=== PATIENT | female | born 1990 | race Caucasian/White ===

== ENCOUNTER 2016-03-23 14:38 | Emergency (ER) | payer OTHER ==
[~2016-03-23] VITALS: Ht 160 cm; Wt 63.6 kg
[~2016-03-23 14:38] MED LIST: OXYC-57 PO
[2016-03-23 14:55] VITALS: TEMP 37; Ht 160 cm; Wt 63.6 kg
--- NOTE | 2016-03-23 16:04 | EMERGENCY ROOM VISIT NOTE ---
History Report prepared by Naheed: Tina Jaramillo Under the Supervision of: Dr. Jaime Camacho M.D. First contact with patient: 15:51 Chief Complaint: VAGINAL BLEEDING Stated Complaint: VAG BLEEDING AND PAIN - APPROX 5 WKS History of Present Illness The patient is a 25 year old female who presents to the Emergency Room with complaints of increased vaginal bleeding since earlier this morning. Currently, she is experiencing cramping pains to her lower abdomen, and she rates her discomfort as a 7/10. When the patient's vaginal bleeding started earlier this morning, she states that she was only minimally spotting, however, it has since become heavy and darker in color. Patient states that she tested positive for last week, but her first appointment with OB is not until the of this month. This is her 5th with history of 3 births and 1 miscarriage. Patient states that she did not experience vaginal bleeding with her full term pregnancies, but she did when she previously miscarried. Patient' s LNMP was the beginning of last month. Over the past few weeks, patient states that she has felt nauseous, but she denies vomiting. She also denies recent fevers, chills, headache, chest pain, diarrhea, urinary symptoms or other acute symptoms. Source of History: patient Onset: this morning Position: other (vaginal) Symptom Intensity: 7/10 Quality: other (bleeding) Timing: other (increased) Associated Symptoms: + abdominal pain (cramping), + nausea, No SOB, No chest pain, No chills, No diarrhea, No fevers, No urinary symptoms, No vomiting Review of Systems All systems have been listed, reviewed, and are negative other than those previously mentioned. Please see Additional Medical History Sheet. Past Medical & Surgical Medical Problems: (1) Acute urinary tract infection (2) Anxiety (3) Depression Family History Cancer Diabetes mellitus Heart disease Hypertension Social History Smoking Status: Current Every Day Smoker Alcohol Use: none Marital Status: in relationship Housing Status: lives with significant other Occupation Status: unemployed Current/Historical Medications No Active Prescriptions or Reported Meds Allergies Coded Allergies: Azithromycin (Verified Allergy, Unknown, ., 03/09/16) Physical Exam Vital Signs Date Time Temp Pulse Resp B/P Pulse Ox O2 Delivery O2 Flow Rate FiO2 03/23/16 17:40 70 20 104/73 99 03/23/16 16:07 94 18 106/64 99 Room Air 105/64 105/77 03/23/16 14:55 37.0 83 17 109/72 99 Room Air Physical Exam GENERAL: Patient awake, alert, oriented x 3. Patient follows commands. Patient does not appear toxic. Patient is adequately hydrated and well- nourished. SKIN: No erythema, pallor, cyanosis or rash HEENT: Normal head, pupils equal, reactive to light and accommodation. Ears normal. Oral cavity and posterior pharynx appear normal. Neck: Without adenopathy, no neck vein distention. LUNGS: Clear to auscultation. No wheezes, no rales, no rhonchi. HEART: No murmurs. No gallops. No rubs ABDOMEN: No masses, no rebound, no hepatomegaly or splenomegaly. PELVIC: Approximately 20-30 CCs of maroon blood in the vaginal vault. Os is closed. Bimanual exam reveals enlarged uterus. No adnexal tenderness. EXTREMITIES: No signs of trauma. No pedal or pretibial edema. No calf or thigh tenderness. No signs of trauma or infection. NEUROLOGIC: Cranial nerves II-XII within normal limits. No gross motor sensory function deficits. Medical Decision & Procedures ER Provider Diagnostic Interpretation: Ultrasound as read by the radiologist: COMPARISON STUDY: ultrasound 03/20/2015. FINDINGS: The uterus measures 7.8 x 3.9 x 5.8 cm. The endometrial stripe measures 8 mm in thickness. There is no evidence for an intrauterine gestational sac at this time. The ovaries are normal in size and demonstrate normal color flow. There is a 1.1 cm cyst within the left ovary. Trace pelvic free fluid, likely physiologic. There is a 4 mm nabothian cyst. No adnexal masses. IMPRESSION: No evidence for an intrauterine gestational sac. No adnexal masses. In the setting of a positive test this is consistent with a of unknown location. This could represent an early nonvisualized intrauterine , nonvisualized ectopic , or recent spontaneous . Follow-up beta-hCG and/or pelvic ultrasound is recommended. Laboratory Results 03/23/16 16:19 Test 03/23/16 16:19 Red Blood Count 5.09 M/uL (4.2-5.4) Mean Corpuscular Volume 90.6 fL (80-100) Mean Corpuscular Hemoglobin 31.2 pg (25-34) Mean Corpuscular Hemoglobin Concent 34.5 g/dl (32-36) RDW Standard Deviation 44.1 fL (36.4-46.3) RDW Coefficient of Variation 13.2 % (11.5-14.5) Mean Platelet Volume 10.4 fL (7.4-10.4) Laboratory results as stated above per my review. ED Course 1551: Past medical records reviewed. The patient was evaluated in room C4. A complete history and physical examination was performed. 1622: A pelvic exam was preformed at this time. Patient will go to US for further radiographic studies. Medical Decision Nurses notes reviewed. Medical history sheet reviewed. Differential diagnosis includes but is not limited to: threatened AB, inevitable AB and ectopic . Exam reveals some blood in the vagina but no tissue. The os is closed. Patient is hemodynamically stable. She is not orthostatic. She is Rh+. Ultrasound as listed above. I spoke with Dr. Bowles From [facility]. The patient will have a repeat quantitative beta-hCG in 48 hours with a follow-up appointment with [facility]. In the meantime the patient is to be off her feet as much as possible. She is return here sooner if bleeding becomes more severe, passes tissue or she becomes lightheaded. Consults Time Called: 1630 Consulting Physician: Jelena [facility] Returned Call: [phone] She'll have one quantitative beta-hCG now and repeat in 48 hours and a follow- up visit with them Impression Primary Impression: First trimester bleeding Scribe Attestation The scribe's documentation has been prepared under my direction and personally reviewed by me in its entirety. I confirm that the note above accurately reflects all work, treatment, procedures, and medical decision making performed by me. Departure Information Dispostion Home / Self-Care Prescriptions No Active Prescriptions or Reported Meds Referrals Nahum Zambrano M.D. (MEDICAL) (PCP) Tamy Bowles MD Patient Instructions A Signature Page, Bleeding Early Preg, My [facility] [employer] Additional Instructions Call [facility] tomorrow morning for a follow-up appointment and repeat quantitative beta-hCG. Stay off your feet as much as possible. Drink extra fluids. Return here sooner if you have excessive bleeding or pass any tissue.
[2016-03-23 16:36] LABS: HEMATOCRIT 46.1 % (37-47); MEAN CELL VOLUME 90.6 fL (80-100); MEAN CORPUSCULAR HEMOGLOBIN 31.2 pg (25-34); MEAN CORPUSCULAR HGB CONC 34.5 g/dl (32-36); MEAN PLATELET VOLUME 10.4 fL (7.4-10.4); PLATELET COUNT 276 K/uL (130-400); RED BLOOD COUNT 5.09 M/uL (4.2-5.4); WHITE BLOOD COUNT 10.29 K/uL (4.8-10.8)
--- NOTE | 2016-03-23 18:22 | DIAGNOSTIC IMAGING REPORT ---
ULTRASOUND <14 WKS SINGLE CLINICAL HISTORY: miscarriage?. Vaginal bleeding. COMPARISON STUDY: ultrasound 03/20/2015. FINDINGS: The uterus measures 7.8 x 3.9 x 5.8 cm. The endometrial stripe measures 8 mm in thickness. There is no evidence for an intrauterine gestational sac at this time. The ovaries are normal in size and demonstrate normal color flow. There is a 1.1 cm cyst within the left ovary. Trace pelvic free fluid, likely physiologic. There is a 4 mm nabothian cyst. No adnexal masses. IMPRESSION: No evidence for an intrauterine gestational sac. No adnexal masses. In the setting of a positive test this is consistent with a of unknown location. This could represent an early nonvisualized intrauterine , nonvisualized ectopic , or recent spontaneous . Follow-up beta-hCG and/or pelvic ultrasound is recommended. Electronically signed by: Rafy Stewart M.D. 03/23/2016 6:20 PM Dictated Date/Time: 03/23/2016 6:16 PM
[2016-03-23 18:59] VITALS: BP 109/71; PULSE 67; O2SAT 100
== END 2016-03-23 19:02 | disposition home or self-care (01) ==
LOC: C.EDB 14:40 → C.EDC 19:02
DX: O20.9 Hemorrhage in early pregnancy, unspecified (principal); O99.341 Other mental disorders complicating pregnancy, first trimester; F41.9 Anxiety disorder, unspecified; F32.9 Major depressive disorder, single episode, unspecified; O99.331 Smoking (tobacco) complicating pregnancy, first trimester; F17.210 Nicotine dependence, cigarettes, uncomplicated; Z3A.01 Less than 8 weeks gestation of pregnancy

== ENCOUNTER → 2016-03-25 | Outpatient (CLI) | payer OTHER | END | disposition home or self-care (01) | LOC: C.LAB 10:30 | PROVIDERS: ATTEND Obstetrics & Gynecology | DX: O20.0 Threatened abortion (principal) ==

== ENCOUNTER → 2016-09-28 | Outpatient (CLI) | payer OTHER | END | disposition home or self-care (01) | LOC: C.PAPS 09:18 | PROVIDERS: ATTEND Physician Assistant | DX: Z01.411 Encounter for gynecological examination (general) (routine) with abnormal findings (principal); A59.01 Trichomonal vulvovaginitis ==

== ENCOUNTER → 2016-09-28 | Outpatient (CLI) | payer OTHER ==
[2016-09-30 15:38] LABS: CHLAMYDIA TRACH RNA*** NOT DETECTED (NOT DETECTED); GC (NEIS GONORRHOEAE)RNA** NOT DETECTED (NOT DETECTED)
== END | disposition home or self-care (01) ==
LOC: C.LABSPEC 17:18
PROVIDERS: ATTEND Physician Assistant
DX: Z01.419 Encounter for gynecological examination (general) (routine) without abnormal findings (principal)

== ENCOUNTER 2017-03-02 20:42 | Emergency (ER) | payer OTHER ==
[~2017-03-02] VITALS: Ht 160 cm; Wt 64.1 kg
[2017-03-02 20:45] VITALS: TEMP 36.3; Ht 160 cm; Wt 64.1 kg
[2017-03-02] MEDS ORDERED: SODIUM CHLORIDE 0.9% 1000ML 1,000 ML IV STA (20:56)
[2017-03-02] MEDS ORDERED: KETOROLAC TROMETHAMINE 30 MG/ML VIAL IV STA (20:56)
[2017-03-02] MEDS ORDERED: DiphenhydrAMINE HCL 50 MG/ML VIAL IV STA (20:56)
[2017-03-02] MEDS ORDERED: ONDANSETRON INJ 2 MG/ML 2 ML VIAL IV STA (20:56)
[2017-03-02] MEDS ORDERED: DEXAMETHASONE INJ 10 MG in SYRINGE 0 ML IV STA (20:56)
[2017-03-02] MEDS ORDERED: ACETAMINOPHEN 500 MG TAB PO STA (20:56)
[2017-03-02] MEDS ORDERED: DEXAMETHASONE **PF** INJ 10 MG/ML VIAL ONE (21:03)
[2017-03-02 21:17] LABS: BASO % 0.4 %; BASO ABS # 0.04 K/uL (0-0.2); COMPLETE YES; EOS % 4.1 %; HEMATOCRIT 45.8 % (37-47); IG% 0.2 %; LYMPH % 33.5 %; LYMPH ABS # 3.48 K/uL (1.2-3.4); MEAN CELL VOLUME 91.6 fL (80-100); MEAN CORPUSCULAR HEMOGLOBIN 31.8 pg (25-34); MEAN CORPUSCULAR HGB CONC 34.7 g/dl (32-36); MEAN PLATELET VOLUME 10.1 fL (7.4-10.4); MONO % 8.7 %; NEUT % 53.1 %; PLATELET COUNT 233 K/uL (130-400); WHITE BLOOD COUNT 10.38 K/uL (4.8-10.8)
--- NOTE | 2017-03-02 21:27 | EMERGENCY ROOM VISIT NOTE ---
History Report prepared by Naheed: Dulce Vasquez Under the Supervision of: Dr. Cesario Valentine M.D. First contact with patient: 20:51 Chief Complaint: HEADACHE Stated Complaint: FREQUENT MIGRANES, DIZZY, BLURRED VISION, WEAK History of Present Illness The patient is a 26 year old female who presents to the Emergency Room with complaints of a constant headache beginning a few days ago. The patient states that she has a history of migraines and has been having them intermittently for the last few months. She reports that she has been having chest pressure and vision changes over the last few days with intermittent migraines. She notes that she has been weak and dizzy recently and this has not happened before. The patient complains of fatigue, a decreased appetite and nausea. She denies any arm weakness, urinary symptoms, fever, cough, congestion, vomiting, sore throat , and tick bites. She has taken Advil and Midol without relief of her symptoms. Source of History: patient Onset: a few days ago Position: head Quality: pressure Timing: constant Associated Symptoms: + nausea, + fatigue, + weakness, No fevers, No sorethroat, No cough, No vomiting, No urinary symptoms Note: The patient complains of a decreased appetite and dizziness. She denies any arm weakness, congestion. Review of Systems See HPI for pertinent positives & negatives. A total of 10 systems reviewed and were otherwise negative. Past Medical & Surgical Medical Problems: (1) Acute urinary tract infection (2) Anxiety (3) Depression Family History Cancer Diabetes mellitus Heart disease Hypertension Social History Smoking Status: Current Every Day Smoker Alcohol Use: none Marital Status: in relationship Housing Status: lives with significant other Occupation Status: unemployed Current/Historical Medications Scheduled Acetaminophen (Tylenol), 1,500 MG PO PRN Acetaminophen (Midol), 2-3 TABS PO PRN UD Amoxicillin & Pot Clavulanate (Augmentin 875-125 mg), 875 MG PO BID Naproxen (Aleve), 440 MG PO PRN UD Allergies Coded Allergies: Azithromycin (Verified Allergy, Unknown, ., 03/09/16) Physical Exam Vital Signs Date Time Temp Pulse Resp B/P (MAP) Pulse Ox O2 Delivery O2 Flow Rate FiO2 03/02/17 21:45 70 16 102/66 98 Room Air 03/02/17 20:45 36.3 74 18 124/84 96 Room Air Physical Exam GENERAL: Patient is in no acute distress. HEENT: No acute trauma, normocephalic atraumatic, mucous membranes moist, no nasal congestion, no scleral icterus. Pupils equal and reactive to light. NECK: No stridor, no adenopathy, no meningismus, trachea is midline. LUNGS: Clear to auscultation bilaterally, no wheeze, no rhonchi, breath sounds equal. HEART: Without murmurs gallops or rubs, regular rate and rhythm. ABDOMEN: Soft, nontender, bowel sounds positive, no hernias, no peritonitis. EXTREMITIES: No cyanosis or edema, full range of motion of all the joints without pain or difficulty, no signs for acute trauma. NEUROLOGIC: Oriented x 3, no acute motor or sensory deficits, no focal weakness. No cerebellar deficits. SKIN: No rash, no jaundice, no diaphoresis Medical Decision & Procedures ER Provider Diagnostic Interpretation: Radiology results as stated below per my review and radiologist interpretation: BRAIN COMBO FINDINGS: No restricted diffusion. The midline structures including the corpus callosum, brainstem, optic chiasm, infundibulum and pituitary gland and pineal gland are unremarkable on the sagittal T1 series. There is no cerebellar tonsillar herniation. Mild adenoid tonsillar hypertrophy. No acute intracranial hemorrhage, midline shift, abnormal extra-axial collections, hydrocephalus or intracranial mass identified. No significant brain parenchymal signal abnormalities identified. There is no abnormal intra-axial or extra-axial enhancement identified. The major flow voids at the level of the skull base appear patent. Orbits are symmetric and unremarkable. Moderate mucoperiosteal thickening of the right maxillary sinus. The remaining paranasal sinuses appear generally clear. Mastoid air cells appear clear. Scalp, calvarium and soft tissues are unremarkable. IMPRESSION: 1. No acute intracranial abnormality. No abnormal enhancement. 2. Moderate mucoperiosteal thickening of the right maxillary sinus. 3. Incidental note is made of mild adenoid tonsillar hypertrophy without significant narrowing of the nasopharynx. The above report was generated using voice recognition software. It may contain grammatical, syntax or spelling errors. Electronically signed by: Silvino Peralta M.D. 03/02/2017 11:07 PM Dictated Date/Time: 03/02/2017 11:01 PM Laboratory Results 03/02/17 21:05 Red Blood Count 5.00, Mean Corpuscular Volume 91.6, Mean Corpuscular Hemoglobin 31.8, Mean Corpuscular Hemoglobin Concent 34.7, Mean Platelet Volume 10.1, Neutrophils (%) (Auto) 53.1, Lymphocytes (%) (Auto) 33.5, Monocytes (%) (Auto) 8.7, Eosinophils (%) (Auto) 4.1, Basophils (%) (Auto) 0.4, Neutrophils # (Auto) 5.51, Lymphocytes # (Auto) 3.48, Monocytes # (Auto) 0.90, Eosinophils # (Auto) 0.43, Basophils # (Auto) 0.04 03/02/17 21:05 Test 03/02/17 21:05 03/02/17 21:38 White Blood Count 10.38 K/uL (4.8-10.8) Red Blood Count 5.00 M/uL (4.2-5.4) Hemoglobin 15.9 g/dL (12.0-16.0) Hematocrit 45.8 % (37-47) Mean Corpuscular Volume 91.6 fL (80-100) Mean Corpuscular Hemoglobin 31.8 pg (25-34) Mean Corpuscular Hemoglobin Concent 34.7 g/dl (32-36) Platelet Count 233 K/uL (130-400) Mean Platelet Volume 10.1 fL (7.4-10.4) Neutrophils (%) (Auto) 53.1 % Lymphocytes (%) (Auto) 33.5 % Monocytes (%) (Auto) 8.7 % Eosinophils (%) (Auto) 4.1 % Basophils (%) (Auto) 0.4 % Neutrophils # (Auto) 5.51 K/uL (1.4-6.5) Lymphocytes # (Auto) 3.48 K/uL (1.2-3.4) Monocytes # (Auto) 0.90 K/uL (0.11-0.59) Eosinophils # (Auto) 0.43 K/uL (0-0.5) Basophils # (Auto) 0.04 K/uL (0-0.2) RDW Standard Deviation 41.2 fL (36.4-46.3) RDW Coefficient of Variation 12.4 % (11.5-14.5) Immature Granulocyte % (Auto) 0.2 % Immature Granulocyte # (Auto) 0.02 K/uL (0.00-0.02) Anion Gap 5.0 mmol/L (3-11) Est Creatinine Clear Calc Drug Dose 97.7 ml/min Estimated GFR () 119.6 Estimated GFR (Non- 103.2 BUN/Creatinine Ratio 18.9 (10-20) Calcium Level 9.0 mg/dl (8.5-10.1) Human Chorionic Gonadotropin, Qual NEG (NEG) Lyme Disease IgG Antibody NEG (NEG) Lyme Disease IgM Antibody NEG (NEG) Urine Color DK YELLOW Urine Appearance CLEAR (CLEAR) Urine pH 5.0 (4.5-7.5) Urine Specific [place] 1.035 (1.000-1.030) Urine Protein NEG (NEG) Urine Glucose (UA) NEG (NEG) Urine Ketones TRACE (NEG) Urine Occult Blood 2+ (NEG) Urine Nitrite POS (NEG) Urine Bilirubin NEG (NEG) Urine Urobilinogen NEG (NEG) Urine Leukocyte Esterase SMALL (NEG) Urine WBC (Auto) 10-30 /hpf (0-5) Urine RBC (Auto) 0-4 /hpf (0-4) Urine Hyaline Casts (Auto) 1-5 /lpf (0-5) Urine Epithelial Cells (Auto) >30 /lpf (0-5) Urine Bacteria (Auto) 4+ (NEG) Laboratory results reviewed by me. Medications Administered Medications (Trade) Dose Ordered Sig/Alison Route Start Time Stop Time Status Last Admin Dose Admin Ondansetron HCl (Zofran Inj) 4 mg NOW STAT IV 03/02/17 20:56 03/02/17 21:00 DC 03/02/17 21:10 4 MG Sodium Chloride 1,000 ml @ 999 mls/hr Q1H1M STAT IV 03/02/17 20:56 03/02/17 21:56 DC 03/02/17 21:10 999 MLS/HR Ketorolac Tromethamine (Toradol Inj) 30 mg NOW STAT IV 03/02/17 20:56 03/02/17 21:00 DC 03/02/17 21:12 30 MG Acetaminophen (Tylenol Tab) 500 mg NOW STAT PO 03/02/17 20:56 03/02/17 21:00 DC 03/02/17 21:11 500 MG Diphenhydramine HCl (Benadryl Inj) 25 mg NOW STAT IV 03/02/17 20:56 03/02/17 21:00 DC 03/02/17 21:11 25 MG Dexamethasone Sodium Phosphate (Dexamethasone Inj Pf) 10 mg STK-MED ONCE .ROUTE 03/02/17 21:03 03/02/17 21:04 DC 03/02/17 21:10 10 MG Ceftriaxone Sodium (Rocephin Inj) 1 gm NOW STAT IV 03/02/17 22:08 03/02/17 22:09 DC 03/02/17 23:04 1 GM ED Course 2050: The patient was evaluated in room A11. A complete history and physical exam was performed. 2055: Dexamethasone Sodium Phosphate 10mg/Syringe 2.5ml @ 1mls/min IV, Benadryl Inj 25mg IV, Tylenol Tab 500mg PO, Toradol Inj 30mg IV, Sodium Chloride 1000 ml @ 999 mls/hr IV, Zofran Inj 4mg IV. 2102: Dexamethasone Sodium Phosphate 10mg. 2207: Rocephin Inj 1gm IV. 2299: Gadavist 6.4mmol IV. 2313: Reevaluated the patient. Discussed results and discharge instructions: She verbalized understanding and agreement. The patient is ready for discharge. Medical Decision The patient is a 26 year old female who presents to the ED with complaints of a headache. Differential diagnoses considered include intracranial mass or bleeding, migraine headaches, dehydration, electrolyte imbalance, , UTI. There is no leukocytosis or concerning anemia. No significant electrolyte abnormality or kidney failure. Urinalysis is suggestive of infection, urine culture is pending. testing was negative. Lyme disease testing was negative. Brain MRI shows possible sinusitis, no mass or evidence for stroke. On my exam, there were no focal neurologic deficits. The patient was not toxic or febrile. There was no meningismus. The patient received IV Decadron, IV Toradol, IV saline, IV Benadryl. She was given oral Tylenol. She was given a dose of IV ceftriaxone. She received IV Zofran for nausea. The patient presents complaining of headaches. By workup, she may have sinusitis, she appears to have a UTI. Certainly, her headaches may be from the UTI and sinus infection. The patient will be treated with Augmentin-this should cover for the urine infection as well as the sinusitis. Rest and hydration were encouraged. Over- the-counter pain medication was suggested. Hopefully she will improve with the oral antibiotics. I have suggested seeing a neurologist though if the headaches are persisting. If things are worsening, she'll return for reassessment. Medication Reconcilliation Current Medication List: was personally reviewed by me Blood Pressure Screening Patient's blood pressure: Normal blood pressure Blood pressure disposition: Did not require urgent referral Impression Primary Impression: Headache Additional Impressions: UTI (urinary tract infection) Sinusitis Scribe Attestation The scribe's documentation has been prepared under my direction and personally reviewed by me in its entirety. I confirm that the note above accurately reflects all work, treatment, procedures, and medical decision making performed by me. Departure Information Dispostion Home / Self-Care Prescriptions Amoxicillin & Pot Clavulanate (Augmentin 875-125 mg) 1 Tab Tab 875 MG PO BID for 10 Days, #20 TAB Prov: Cesario Valentine M.D. 03/02/17 Referrals Nahum Zambrano M.D. (MEDICAL) (PCP) Forms HOME CARE DOCUMENTATION FORM, IMPORTANT VISIT INFORMATION Patient Instructions My [facility] [employer] Additional Instructions fluids rest motrin or tylenol for pain augmentin 2x per day for 10 days follow with bk moody return if worsening consider seeing neurologist if the headaches are persisting Problem Qualifiers
[2017-03-02 21:45] LABS: BUN/CREATININE RATIO 18.9 (10-20); CREATININE 0.8 mg/dl (0.60-1.20); POTASSIUM 3.7 mmol/L (3.5-5.1)
[2017-03-02] MEDS ORDERED: NAPR1TAB9 PO (21:52)
[2017-03-02] MEDS ORDERED: ACET-1256 PO (21:52)
[2017-03-02] MEDS ORDERED: ACET-1652 PO (21:52)
[2017-03-02 21:56] LABS: URINE APPEARANCE CLEAR (CLEAR); URINE BILIRUBIN NEG (NEG); URINE COLOR DK YELLOW; URINE EPITHELIAL CELL AUTO >30 /lpf (0-5); URINE NITRITE POS (NEG); URINE SPECIFIC GRAVITY 1.035 (1.000-1.030); UROBILINOGEN NEG (NEG); ZZUR CULT IF INDIC CLEAN CATCH YES
[2017-03-02 21:59] LABS: MANUAL MICROSCOPIC REQUIRED? NO; REVIEW REQ? NO
[2017-03-02 22:04] LABS: PREG INTERNAL NEGATIVE QC NEG CLEAR BACKGROUND; PREG INTERNAL POSITIVE QC POS CONTROL LINE
[2017-03-02] MEDS ORDERED: CEFTRIAXONE SOD INJ 1 GM ADDVIAL IV STA (22:08)
[2017-03-02 22:17] LABS: LYME DISEASE AB IGG NEG (NEG); LYME DISEASE AB IGM NEG (NEG)
[2017-03-02] MEDS ORDERED: GADAVIST IV PRN (23:00)
--- NOTE | 2017-03-02 23:08 | DIAGNOSTIC IMAGING REPORT ---
BRAIN COMBO HISTORY: 26 years-old Female Evaluate for mass, hemorrhage or pathology acute migraine headache COMPARISON: None available TECHNIQUE: Multiplanar multisequence MRI of the brain was obtained both with and without the use of 6.4 mL Gadavist FINDINGS: No restricted diffusion. The midline structures including the corpus callosum, brainstem, optic chiasm, infundibulum and pituitary gland and pineal gland are unremarkable on the sagittal T1 series. There is no cerebellar tonsillar herniation. Mild adenoid tonsillar hypertrophy. No acute intracranial hemorrhage, midline shift, abnormal extra-axial collections, hydrocephalus or intracranial mass identified. No significant brain parenchymal signal abnormalities identified. There is no abnormal intra-axial or extra-axial enhancement identified. The major flow voids at the level of the skull base appear patent. Orbits are symmetric and unremarkable. Moderate mucoperiosteal thickening of the right maxillary sinus. The remaining paranasal sinuses appear generally clear. Mastoid air cells appear clear. Scalp, calvarium and soft tissues are unremarkable. IMPRESSION: 1. No acute intracranial abnormality. No abnormal enhancement. 2. Moderate mucoperiosteal thickening of the right maxillary sinus. 3. Incidental note is made of mild adenoid tonsillar hypertrophy without significant narrowing of the nasopharynx. The above report was generated using voice recognition software. It may contain grammatical, syntax or spelling errors. Electronically signed by: Silvino Peralta M.D. 03/02/2017 11:07 PM Dictated Date/Time: 03/02/2017 11:01 PM
[2017-03-02] MEDS ORDERED: AMOX875T PO (23:21)
[2017-03-02 23:40] VITALS: BP 108/70; PULSE 65; O2SAT 96
--- NOTE | 2017-03-04 12:21 | Pharmacy Progress Note ---
ED Pharmacist Culture FollowUp Date of Service: Mar 04, 2017. Patient was sent home with a prescription for augmentin X 10 days, which should cover the e. coli growing from the patient's urine culture.
== END 2017-03-02 23:41 | disposition home or self-care (01) ==
LOC: C.EDB 20:43 → C.EDA 23:41
DX: R51 Headache (principal); N39.0 Urinary tract infection, site not specified; J32.9 Chronic sinusitis, unspecified; F41.9 Anxiety disorder, unspecified; F32.9 Major depressive disorder, single episode, unspecified; Z80.9 Family history of malignant neoplasm, unspecified; Z83.3 Family history of diabetes mellitus; Z82.49 Family history of ischemic heart disease and other diseases of the circulatory system; F17.210 Nicotine dependence, cigarettes, uncomplicated

== ENCOUNTER → 2017-05-28 | Outpatient (CLI) | payer OTHER ==
[~2017-05-28] MED LIST changes: +ACET-1256 PO; +ACET-1652 PO; +NAPR1TAB9 PO; -OXYC-57 PO
[2017-05-28 14:01] LABS: BASO % 0.3 %; BASO ABS # 0.03 K/uL (0-0.2); EOS % 2.5 %; EOS ABS # 0.27 K/uL (0-0.5); HEMATOCRIT 43.2 % (37-47); HEMOGLOBIN 15.1 g/dL (12.0-16.0); IG# 0.04 K/uL (0.00-0.02); LYMPH % 23.7 %; LYMPH ABS # 2.55 K/uL (1.2-3.4); MEAN CORPUSCULAR HEMOGLOBIN 31.5 pg (25-34); MEAN PLATELET VOLUME 10.2 fL (7.4-10.4); MONO % 7.5 %; MONO ABS # 0.81 K/uL (0.11-0.59); NEUT % 65.6 %; NEUT ABS # 7.07 K/uL (1.4-6.5); PLATELET COUNT 241 K/uL (130-400); RED CELL DISTRIBUTION WIDTH CV 12.1 % (11.5-14.5); WHITE BLOOD COUNT 10.77 K/uL (4.8-10.8)
== END | disposition home or self-care (01) ==
LOC: C.LAB1850 12:29
PROVIDERS: ATTEND Obstetrics & Gynecology
DX: Z34.81 Encounter for supervision of other normal pregnancy, first trimester (principal)

== ENCOUNTER → 2017-07-30 | Outpatient (CLI) | payer OTHER | END | disposition home or self-care (01) | LOC: C.LAB1850 16:28 | PROVIDERS: ATTEND Obstetrics & Gynecology | DX: O23.41 Unspecified infection of urinary tract in pregnancy, first trimester (principal); Z3A.00 Weeks of gestation of pregnancy not specified ==

== ENCOUNTER → 2017-10-22 | Outpatient (CLI) | payer OTHER ==
[2017-10-22 12:18] LABS: HEMATOCRIT 33.9 % (37-47); HEMOGLOBIN 11.5 g/dL (12.0-16.0)
== END | disposition home or self-care (01) ==
LOC: C.LAB1850 10:35
PROVIDERS: ATTEND Obstetrics & Gynecology
DX: Z34.83 Encounter for supervision of other normal pregnancy, third trimester (principal); Z3A.00 Weeks of gestation of pregnancy not specified

== ENCOUNTER 2017-10-23 02:03 | Outpatient (CLI) | payer OTHER ==
[~2017-10-23] VITALS: Ht 160 cm; Wt 70.0 kg
[2017-10-23 03:02] VITALS: Ht 160 cm; Wt 70.0 kg
== END 2017-10-23 03:12 | disposition home or self-care (01) ==
LOC: C.LD 02:03 → C.OPB 02:03
PROVIDERS: ATTEND Obstetrics & Gynecology
DX: O99.343 Other mental disorders complicating pregnancy, third trimester (principal); F41.9 Anxiety disorder, unspecified; Z3A.28 28 weeks gestation of pregnancy

== ENCOUNTER 2022-05-12 14:21 | Inpatient (IN) ==
[2022-05-12] MEDS ORDERED: miSOPROStoL 50 MCG TAB PO ONE (19:45)
[2022-05-12] MEDS ORDERED: OXYTOCIN 30 UNITS/500 ML BAG IV PRN (19:45)
[2022-05-12] MEDS ORDERED: LIDOCAINE 1% LOCAL 20 ML VIAL INFIL PRN (19:45)
[2022-05-12 20:43] LABS: Hematocrit (blood only) 35.2 % (37.0-47.0); Hemoglobin 11.9 g/dl (12.0-16.0); Mean Corpuscular Hemoglobin 30.2 pg (25.0-34.0); Mean Corpuscular Hgb Conc 33.8 g/dL (32.0-36.0); Mean Corpuscular Volume 89.3 fL (80.0-100.0); Mean Platelet Volume 10.1 fL (9.4-12.4); Platelet Count 223 K/uL (130-400); RDW Coefficient of Variation 12.7 % (11.5-14.5); RDW Standard Deviation 41.8 fL (36.4-46.3); Red Blood Count 3.94 M/uL (4.20-5.40); White Blood Count 11.43 K/ul (4.8-10.8)
[2022-05-12] MEDS: LACTATED RINGER'S 1,000 ML IV PRN (20:45)
[2022-05-13] MEDS ORDERED: miSOPROStoL 50 MCG TAB PO SCH (00:15)
[2022-05-13] MEDS ORDERED: BUTORPHANOL TARTRATE 1 MG/ML VIAL IV PRN (04:09)
[2022-05-13] MEDS ORDERED: BUTORPHANOL TARTRATE 1 MG/ML VIAL ONE (04:11)
[2022-05-13] MEDS ORDERED: OXYTOCIN 30 UNITS/500 ML BAG IV PRN ×2 (04:56→13:25)
[2022-05-13] MEDS ORDERED: fentaNYL citrate 100 MCG/2 ML VIAL ONE ×2 (05:00→11:43)
[2022-05-13] MEDS ORDERED: SODIUM CHLORIDE 0.9% INJ 10 ML VIAL ONE (05:00)
[2022-05-13] MEDS ORDERED: ePHEDrine sulfate 50 MG/ML AMP ONE (05:00)
[2022-05-13] MEDS ORDERED: LIDOCAINE 2%/EPINEPHRINE 1:200,000 20 ML SDV ONE (05:01)
[2022-05-13] MEDS ORDERED: fentaNYL 2MCG/ML ROPIVACAINE 1.25MG/ML 100 ML BAG EPI ONE (05:01)
[2022-05-13] MEDS ORDERED: BUPIVACAINE 0.25% 30 ML VIAL ONE (05:01)
[2022-05-13] MEDS ORDERED: NALOXONE HCL 1 MG in SODIUM CHLORIDE 0.9% 1000ML 1,000 ML IV PRN (05:10)
[2022-05-13] MEDS ORDERED: ePHEDrine sulfate 50 MG/ML AMP IV PRN (05:10)
[2022-05-13] MEDS ORDERED: diphenhydrAMINE 50 MG/ML VIAL IV PRN (05:10)
[2022-05-13] MEDS ORDERED: fentaNYL 2MCG/ML ROPIVACAINE 1.25MG/ML 100 ML BAG EPI PRN (05:10)
[2022-05-13] MEDS ORDERED: NALBUPHINE HCL INJ 10 MG/ML AMP IV PRN (05:10)
[2022-05-13] MEDS ORDERED: NALOXONE HCL 0.4 MG/1 ML VIAL/CARP IV PRN (05:10)
--- NOTE | 2022-05-13 05:10 | Anesthesiology Consultation ---
Date of Service May 13, 2022 Assessment & Plan (1) Encounter for pre-operative examination: Chart Review Chart Review: Patient NOT seen in Pre Admission Testing and Acceptable Risk for Labor Epidural Consults Requested none History Height/Weight Height: 5 ft 3 in Weight: 85.729 kg Allergies Allergy/AdvReac Type Severity Reaction Status Date / Time azithromycin Allergy Hives Verified 09/24/21 00:02 [From Zithromax Z-Eran] Medications Home Medications Medication Instructions Recorded Confirmed Last Taken vit no.133-ferrous 0 tab PO DAILY 09/24/21 05/12/22 05/12/22 fumarate 28 mg-folic acid 800 mcg tablet () Active Medications Generic Name Dose Route Start Last Admin Trade Name Freq PRN Reason Stop Dose Admin Lactated Ringer's 1,000 mls @ 125 mls/hr 05/12/22 19:45 05/13/22 04:55 Lr IV 05/14/22 19:44 999 mls/hr .Q8H PRN Infusion L&D Protocol Protocol Misoprostol 50 mcg 05/13/22 00:15 05/13/22 00:15 Misoprostol 50 Mcg Tab PO 06/12/22 00:14 50 mcg Q4H TRICIA Administration Past Medical History Medical History (Updated 05/13/22 @ 05:10 by Hayden Lou DO) Irregular uterine contractions Menorrhagia with 39 completed weeks gestation Spontaneous UTI (urinary tract infection) Varicella Past Family History Family History Grandmother (Maternal) Diabetes Family/Other Diabetes grandfather Hypertension grandfather Lymph node cancer grandmother Mother Skin cancer Other No significant family history Denies family history of Prostate cancer Past Surgical History Surgical History History of cryosurgery [place] teeth extracted Social History Smoking Status: Current every day smoker tobacco type: e-cigarettes Smoking cigarettes per day: 10-20 Do You Dip or Chew Tobacco: No Hx Alcohol Use: No Hx Substance Use: No substance use type: does not use Physical Exam Vital Signs Last Vital Signs Temp 97.9 F 05/13/22 02:31 Pulse 82 05/13/22 05:07 Resp 18 05/13/22 02:31 BP 114/71 05/13/22 05:07 Pulse Ox 98 05/13/22 05:07 Testing Laboratory Results 05/12/22 20:11
[2022-05-13] MEDS: LACTATED RINGER'S 1,000 ML IV PRN ×2 (05:30→11:45)
[2022-05-13] MEDS ORDERED: LIDOCAINE 2% MPF LOCAL 5 ML VIAL INFIL ONE (11:43)
[2022-05-13] MEDS ORDERED: NURSING L&D Epidural Breakthrough Pain Update ONE (11:48)
[2022-05-13] MEDS ORDERED: Nursing to Pharmacy Communication SCH (12:00)
[2022-05-13] MEDS ORDERED: METHYLERGONOVINE MALEATE 0.2 MG/ML AMP ONE (13:11)
[2022-05-13] MEDS ORDERED: BENZOCAINE 20% AER SPR 82.5 GM CAN EXT PRN (13:25)
[2022-05-13] MEDS ORDERED: ACETAMINOPHEN 325 MG TAB PO PRN (13:25)
[2022-05-13] MEDS ORDERED: DIPHTHERIA/TETANUS/PERTUSSIS 0.5mL SYR/VIAL (Age 7+yrs) IM ONE (13:25)
[2022-05-13] MEDS ORDERED: bisacodyL 10 MG SUPP PR PRN (13:25)
[2022-05-13] MEDS ORDERED: ACETAMINOPHEN W/CODEINE #3 1 TAB PO PRN (13:25)
[2022-05-13] MEDS ORDERED: oxyCODONE/ACETAMINOPHEN 5mg/325mg TAB PO PRN (13:25)
[2022-05-13] MEDS ORDERED: METHYLERGONOVINE MALEATE 0.2 MG/ML AMP IM ONE (13:25)
[2022-05-13] MEDS ORDERED: HYDROCORTISONE ACETATE 25 MG SUPP PR PRN (13:25)
[2022-05-13] MEDS: IBUPROFEN 600 MG TAB PO PRN ×3 (13:53→21:33)
--- NOTE | 2022-05-13 15:00 | Delivery Summary ---
She is 10, para 5, blood type is O positive, group B strep negative. She had uneventful prena [facility], but she did have a Klebsiella urinary tract infection, which had to be treated several time s before it resolved. Other than that, she was good. Her due date is 05/15/2022. She requested piyush ction. Estimated weight was 8 pounds and she barely made it to the hospital to deliver her las t . She was admitted the day before she delivered in the evening. Cervix was not ripe, was a vertex presentation about 1 cm. She was given two doses of p.o. Cytotec 50 mcg and then she was gi mona Stadol epidural and then she was augmented with IV Pitocin. She had good regular contractions. She went to full dilatation, delivered a live female via direct occiput anterior position over an intact perineum. Infant was suctioned through the mouth and the nose. Shoulders were delivered without difficulty. Cord was allowed to pulse for a minute and clamped and cut. Cord blood was take n. With IV Pitocin running, the placenta was removed intact. She was also given IM Methergine. A fi rst-degree laceration was repaired anatomically with 2-0 Vicryl. The vaginal mucosa was approximated out and to beyond the hymenal ring with a running suture of 2-0 Vicryl. Deep suture was used to appr oximate the bulbocavernosus muscle. Two interrupted deep sutures used to approximate the perineal bill dy and a running subcuticular suture was used to approximate the perineal skin edges. Following this , vaginal exam, removed all sponges from the vagina. Hemostasis was good. The uterus contracted wel l. Estimated blood loss was 200 mL. Job ID: [id number]
--- NOTE | 2022-05-13 15:39 | Anesthesia Procedure Note ---
Date of Service May 13, 2022 Anesthesia Post Epidural Note Vital Signs Vital Signs: Temp Pulse Resp BP Pulse Ox 36.7 C 83 20 111/66 98 05/13/22 10:38 05/13/22 15:37 05/13/22 15:00 05/13/22 15:37 05/13/22 13:02 Pain Intensity Bilateral Abdomen: Pain Intensity: 3 Notes Mental Status: alert / awake / arousable Nausea / Vomiting: adequately controlled Pain: adequately controlled Airway Patency, RR, SpO2: stable & adequate BP & HR: stable & adequate Hydration State: stable & adequate Neuraxial Anesthesia: was administered and sensory block is resolving Anesthetic Complications: no major complications apparent and Pt Satisfied with anesthetic care Epidural: Removed without complications and With tip intact
[2022-05-13] MEDS: DOCUSATE SODIUM 100 MG CAP PO SCH (21:33)
[2022-05-14] MEDS: IBUPROFEN 600 MG TAB PO PRN ×3 (01:37→11:28)
[2022-05-14 06:45] LABS: Hemoglobin 11.5 g/dl (12.0-16.0); Mean Corpuscular Hemoglobin 30.1 pg (25.0-34.0); Mean Corpuscular Hgb Conc 33.8 g/dL (32.0-36.0); Mean Platelet Volume 10.6 fL (9.4-12.4); Platelet Count 225 K/uL (130-400); RDW Standard Deviation 42.1 fL (36.4-46.3); Red Blood Count 3.82 M/uL (4.20-5.40); White Blood Count 13.27 K/ul (4.8-10.8)
[2022-05-14] MEDS ORDERED: PRENATAL VITAMIN 1 TAB PO SCH (08:00)
[2022-05-14] MEDS: DOCUSATE SODIUM 100 MG CAP PO SCH (08:12)
--- NOTE | 2022-05-14 09:26 | Obstetrical Progress Note ---
Date of Service May 14, 2022 Assessment & Plan Admission and Anticipated Discharge Date Admission Date: May 12, 2022 Subjective abdomen soft and non tender no calf tenderness ambulating well vaginal bleeding scant hgb 11.5 Results & Data ([facility]) Vital Signs (Past 12 Hours) Vital Signs Temp Pulse Resp BP Pulse Ox O2 Del Method 05/14/22 07:50 36.4 C L 62 18 107/70 97 Room Air 05/14/22 03:20 36.8 C 74 18 109/72 97 Room Air 05/13/22 23:05 36.7 C 69 18 101/62 98 Room Air
[2022-05-14] MEDS ORDERED: bisacodyL 5 MG TABEC PO SCH (20:00)
== END 2022-05-14 14:40 | disposition home or self-care (01) | DRG 807 ==
LOC: 4S1 19:14 → 4E2 05-13 16:00